=== PATIENT | male | born 1965 | race Caucasian/White ===

== ENCOUNTER 2018-09-16 14:59 | Emergency (ER) | payer OTHER ==
[~2018-09-16] VITALS: Ht 182.9 cm; Wt 102.5 kg
[2018-09-16 15:25] VITALS: BP 134/91; Ht 182.9 cm; Wt 102.5 kg
== END 2018-09-16 16:57 | disposition home or self-care (01) ==
LOC: ED 14:59
DX: G89.29 Other chronic pain (principal); M25.511 Pain in right shoulder
CPT/HCPCS: J1885; J2930

== ENCOUNTER 2019-09-09 19:33 | Emergency (ER) | payer OTHER ==
[~2019-09-09] VITALS: Ht 185.4 cm; Wt 97.5 kg
[2019-09-09 19:49] VITALS: Ht 185.4 cm; Wt 97.5 kg
[2019-09-09 20:50] VITALS: BP 150/98
== END 2019-09-09 20:50 | disposition home or self-care (01) ==
LOC: ED 19:33
DX: M25.511 Pain in right shoulder (principal)
CPT/HCPCS: J1885

== ENCOUNTER 2020-04-15 21:42 | Emergency (ER) | payer SELFPAY ==
[~2020-04-15] VITALS: Ht 182.9 cm; Wt 103.0 kg
[2020-04-15 22:12] LABS: BASOPHIL % 0.9 % (0-2); PLATELET COUNT 172 x10^3mcL (130-400)
[2020-04-15 22:17] LABS: RED CELL DISTRIBUTION WIDTH 17.3 % (11.5-14.5)
[2020-04-15 22:21] LABS: CALCIUM 8.8 mg/dL (8.5-10.1); CARBON DIOXIDE 31.8 mmol/L (21-32); CHLORIDE SERUM 103 mmol/L (98-107); CREATININE SERUM 1.2 mg/dL (0.7-1.3); GFR1 > 60 mL/min; GLUCOSE SERUM 117 mg/dL (74-106); POTASSIUM SERUM 4.1 mmol/L (3.5-5.1); SODIUM SERUM 140 mmol/L (136-145)
[2020-04-15 22:25] LABS: ALBUMIN 4.4 g/dL (3.4-5.0); ALKALINE PHOSPHATASE 88 U/L (46-116); ALT/SGPT 55 U/L (16-63); AST/SGOT 26 U/L (15-37)
[2020-04-15 22:31] LABS: TOTAL PROTEIN, SERUM 8.3 g/dL (6.4-8.2)
[2020-04-16 00:44] VITALS: BP 149/98
== END 2020-04-16 00:35 | disposition home or self-care (01) ==
LOC: ED 21:42
DX: R07.89 Other chest pain (principal); I10 Essential (primary) hypertension; F17.210 Nicotine dependence, cigarettes, uncomplicated
CPT/HCPCS: 85378; J1885; Q0092